=== PATIENT | male | born 1965 | race American Indian/Alaskan Native ===

== ENCOUNTER 2016-10-15 20:55 | Emergency (ER) | payer BC ==
[2016-10-15 21:43] VITALS: BP 157/107
== END 2016-10-15 21:38 | disposition left against medical advice (07) ==
LOC: ED 20:55
DX: R03.0 Elevated blood-pressure reading, without diagnosis of hypertension (principal); Z53.21 Procedure and treatment not carried out due to patient leaving prior to being seen by health care provider

== ENCOUNTER 2017-08-19 07:28 | Outpatient (CLI) | payer OTHER | END 2017-08-19 07:29 | disposition home or self-care (01) | LOC: PF 07:28 | PROVIDERS: ATTEND Internal Medicine | DX: J98.4 Other disorders of lung (principal); K21.9 Gastro-esophageal reflux disease without esophagitis; I10 Essential (primary) hypertension; G47.30 Sleep apnea, unspecified; F32.9 Major depressive disorder, single episode, unspecified | CPT/HCPCS: 94010; 94729 ==

== ENCOUNTER 2020-02-09 09:27 | Outpatient (CLI) | payer OTHER ==
--- NOTE | 2020-02-09 10:34 | XRay Report ---
CHEST 2 VIEWS INDICATION / CLINICAL INFORMATION: COPD. COMPARISON: None available. FINDINGS: SUPPORT DEVICES: None. HEART / MEDIASTINUM: No significant abnormality. LUNGS / PLEURA: No significant pulmonary or pleural abnormality. No pneumothorax. ADDITIONAL FINDINGS: No significant additional findings. IMPRESSION: 1. No acute findings. Signer Name: Inocente Willis MD Signed: 02/09/2020 10:30 AM Workstation Name: [id number]
== END 2020-02-09 09:28 | disposition home or self-care (01) ==
LOC: XRAY 09:27
PROVIDERS: ATTEND Internal Medicine
DX: J44.9 Chronic obstructive pulmonary disease, unspecified (principal)
CPT/HCPCS: 71046

== ENCOUNTER 2020-09-18 07:33 | Outpatient (CLI) | payer OTHER | END 2020-09-18 07:34 | disposition home or self-care (01) | LOC: PF 07:33 | PROVIDERS: ATTEND Internal Medicine | DX: Z02.71 Encounter for disability determination (principal) | CPT/HCPCS: 94010; 94729 ==